=== PATIENT | female | born 1950 | race Caucasian/White ===

== ENCOUNTER 2017-10-12 07:02 | Day surgery (SDC) | payer MEDICARE, BC ==
[2017-10-12] MEDS ORDERED: Sodium Chloride 0.9% 1,000 ML IV SCH (07:45)
[2017-10-12] MEDS ORDERED: Albuterol/Ipratropium 3.0-0.5 MG/3 ML Neb Soln NEB ONE (08:00)
[2017-10-12] MEDS ORDERED: fentaNYL 100 MCG/2 ML SDV ONE (08:09)
[2017-10-12] MEDS ORDERED: Propofol 200 MG/20 ML SDV ONE (08:09)
[2017-10-12] MEDS ORDERED: Midazolam 1 MG/ML 2 ML SDV ONE (08:09)
--- NOTE | 2017-10-12 11:32 | OR ---
DATE OF PROCEDURE: 10/12/2017 PROCEDURE: Colonoscopy. FINDINGS: 1. Diverticulosis, mild to moderate, but limited to sigmoid colon only. 2. Sigmoid colon polyp, approximately 5 mm, completely removed using cold biopsy forceps. COMPLICATIONS: None. METAL CASTING TRADES WORKER: None. PREOPERATIVE DIAGNOSIS: Screening colonoscopy. POSTOPERATIVE DIAGNOSIS: Screening colonoscopy. RISKS: Risks, benefits, alternatives, and limitations including, but not limited to infection, bleeding, and perforation were explained to the patient, who wished to proceed. PROCEDURE IN DETAIL: The patient was placed in left lateral decubitus position. Digital rectal exam was performed without abnormality. The scope was introduced and advanced atraumatically to the ileocecal valve. A photo was taken. The scope was brought back through the ascending, transverse, descending colon, and retroflexed. The aforementioned polyp was identified and completely removed. The diverticulosis would be described as mild to moderate and limited to sigmoid colon only. No abnormalities on retroflexion. The patient tolerated the procedure well. Victor Manuel Castillo MD /[id number]
== END 2017-10-12 09:39 | disposition home or self-care (01) ==
LOC: JP.SDS 07:02
PROVIDERS: ATTEND Surgery
DX: Z12.11 Encounter for screening for malignant neoplasm of colon (principal); K63.5 Polyp of colon; K57.30 Diverticulosis of large intestine without perforation or abscess without bleeding; I10 Essential (primary) hypertension; J44.9 Chronic obstructive pulmonary disease, unspecified; E03.9 Hypothyroidism, unspecified; F17.210 Nicotine dependence, cigarettes, uncomplicated; Z88.8 Allergy status to other drugs, medicaments and biological substances; Z86.010 Personal history of colon polyps
CPT/HCPCS: 45380; 88305; J2250; J2704; J3010; J7040; J7620; J7030

== ENCOUNTER 2019-07-10 12:20 | Emergency (ER) | payer MEDICARE, BC ==
--- NOTE | 2019-07-10 13:21 | EDM.PDOC ---
ED HPI GENERAL MEDICAL PROBLEM - General Chief Complaint: General Stated Complaint: VOMITING WEAKNESS NO FOOD Time Seen by Provider: 07/10/19 13:15 Source of Information: Reports: Patient, Family, RN Notes Reviewed History Limitations: Reports: No Limitations - History of Present Illness INITIAL COMMENTS - FREE TEXT/NARRATIVE: 69-year-old female presents emergency department today complaint of nausea vomiting, she's been ill for 3 days is not having loose stools she is the only one that is sick in the household no fevers no shortness of breath or chest pain , does have crampy abdominal pain Abdomen Pain Score (Numeric/FACES): 4 - Related Data Allergies Allergy/AdvReac Type Severity Reaction Status Date / Time lisinopril Allergy Swelling Verified 10/12/17 07:28 codeine AdvReac Vomiting Verified 10/12/17 07:28 Home Meds: Home Meds Albuterol Sulfate [Proair Hfa] 2 puff IH Q4H PRN 08/03/15 [History] Aspirin [Children's Aspirin] 81 mg PO DAILY 08/03/15 [History] Irbesartan [Avapro] 150 mg PO DAILY 08/03/15 [History] Metoprolol Succinate [Toprol XL] 150 mg PO BEDTIME 08/03/15 [History] Ondansetron [Zofran] 4 mg PO Q8H PRN 08/03/15 [History] amLODIPine Besylate [Amlodipine Besylate] 5 mg PO DAILY 08/03/15 [History] Omeprazole 20 mg PO DAILY 10/10/17 [History] Triamcinolone Acetonide [Kenalog 0.1% Crm] 1 dose TOP BID 10/10/17 [History] Past Medical History HEENT History: Reports: Impaired Vision Cardiovascular History: Reports: Hypertension Respiratory History: Reports: Asthma Gastrointestinal History: Reports: Diverticulosis, Other (See Below) 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: Musculoskeletal History: Reports: Arthritis - Infectious Disease History Infectious Disease History: Reports: Chicken Pox - Past Surgical History Cardiovascular Surgical History: Reports: None Respiratory Surgical History: Reports: None GI Surgical History: Reports: Appendectomy, Colonoscopy Musculoskeletal Surgical History: Reports: None Social & Family History - Family History Family Medical History: Noncontributory - Tobacco Use Smoking Status *Q: Current Every Day Smoker Years of Tobacco use: 50 Packs/Tins Daily: 0.5 - Caffeine Use Caffeine Use: Reports: Soda ED ROS GENERAL - Review of Systems Review Of Systems: See Below Constitutional: Reports: Weakness, Decreased Appetite. Denies: Fever, Chills HEENT: Reports: No Symptoms Respiratory: Reports: No Symptoms Cardiovascular: Reports: No Symptoms GI/Abdominal: Reports: Abdominal Pain (Crampy), Nausea, Vomiting. Denies: Constipation, Diarrhea : Reports: No Symptoms ED EXAM, GENERAL - Physical Exam Exam: See Below Exam Limited By: No Limitations General Appearance: Alert, WD/WN, No Apparent Distress Respiratory/Chest: No Respiratory Distress, Lungs Clear, Normal Breath Sounds, No Accessory Muscle Use, Chest Non-Tender Cardiovascular: Regular Rate, Rhythm, No Murmur GI/Abdominal: Soft, Non-Tender Course - Vital Signs Last Recorded V/S: Last Vital Signs Temp 99.2 F 07/10/19 12:35 Pulse 108 H 07/10/19 12:35 Resp 24 H 07/10/19 12:35 BP 188/91 H 07/10/19 12:35 Pulse Ox 96 07/10/19 12:35 - Orders/Labs/Meds Orders: Active Orders 24 hr Category Date Time Status Peripheral IV Care [RC] . DIRECTED Care 07/10/19 13:19 Active Lactated Ringers [Ringers, Lactated] 1,000 ml Med 07/10/19 13:30 Active IV ASDIRECTED Sodium Chloride 0.9% [Saline Flush] Med 07/10/19 13:18 Active 10 ml FLUSH ASDIRECTED PRN Peripheral IV Insertion Adult [OM.PC] Urgent Oth 07/10/19 13:18 Ordered Medication Orders Lactated Ringer's (Ringers, Lactated) 1,000 mls @ 999 mls/hr IV ASDIRECTED SIRISHA Last Admin: 07/10/19 13:35 Dose: 999 mls/hr Sodium Chloride (Saline Flush) 10 ml FLUSH ASDIRECTED PRN PRN Reason: Keep Vein Open Last Admin: 07/10/19 13:37 Dose: 10 ml Labs: Laboratory Tests 07/10/19 07/10/19 07/10/19 Range/Units 13:32 13:32 13:32 WBC 11.3 H (4.5-11.0) K/uL RBC 4.07 (3.30-5.50) M/uL Hgb 13.7 (12.0-15.0) g/dL Hct 38.0 (36.0-48.0) % MCV 93 (80-98) fL MCH 34 H (27-31) pg MCHC 36 (32-36) % Plt Count 310 (150-400) K/uL Neut % (Auto) 81 H (36-66) % Lymph % (Auto) 8 L (24-44) % Sherman % (Auto) 12 H (2-6) % Eos % (Auto) 0 L (2-4) % Baso % (Auto) 0 (0-1) % Sodium 121 L (140-148) mmol/L Potassium 3.7 (3.6-5.2) mmol/L Chloride 84 L (100-108) mmol/L Carbon Dioxide 26 (21-32) mmol/L Anion Gap 14.7 H (5.0-14.0) mmol/L BUN 6 L (7-18) mg/dL Creatinine 0.7 (0.6-1.0) mg/dL Est Cr Clr Drug Dosing 63.63 mL/min Estimated GFR (MDRD) > 60 (>60) Glucose 136 H (74-106) mg/dL Lactic Acid 2.6 H (0.4-2.0) mmol/L Calcium 8.9 (8.5-10.1) mg/dL Magnesium 0.8 L (1.8-2.4) mg/dL Total Bilirubin 0.6 (0.2-1.0) mg/dL AST 26 (15-37) U/L ALT 15 (12-78) U/L Alkaline Phosphatase 65 (46-116) U/L Total Protein 7.8 (6.4-8.2) g/dL Albumin 3.5 (3.4-5.0) g/dL Globulin 4.3 H (2.3-3.5) g/dL Albumin/Globulin Ratio 0.8 L (1.2-2.2) Lipase 89 (73-393) U/L Urine Color (YELLOW) Urine Appearance (CLEAR) Urine pH (5.0-8.0) Ur Specific [place] (1.008-1.030) Urine Protein (NEGATIVE) mg/dL Urine Glucose (UA) (NEGATIVE) mg/dL Urine Ketones (NEGATIVE) mg/dL Urine Occult Blood (NEGATIVE) Urine Nitrite (NEGATIVE) Urine Bilirubin (NEGATIVE) Urine Urobilinogen (0.2-1.0) EU/dL Ur Leukocyte Esterase (NEGATIVE) Urine RBC (0-5) Urine WBC (0-5) Ur Epithelial Cells Amorphous Sediment Urine Bacteria Urine Mucus 07/10/19 Range/Units 14:32 WBC (4.5-11.0) K/uL RBC (3.30-5.50) M/uL Hgb (12.0-15.0) g/dL Hct (36.0-48.0) % MCV (80-98) fL MCH (27-31) pg MCHC (32-36) % Plt Count (150-400) K/uL Neut % (Auto) (36-66) % Lymph % (Auto) (24-44) % Sherman % (Auto) (2-6) % Eos % (Auto) (2-4) % Baso % (Auto) (0-1) % Sodium (140-148) mmol/L Potassium (3.6-5.2) mmol/L Chloride (100-108) mmol/L Carbon Dioxide (21-32) mmol/L Anion Gap (5.0-14.0) mmol/L BUN (7-18) mg/dL Creatinine (0.6-1.0) mg/dL Est Cr Clr Drug Dosing mL/min Estimated GFR (MDRD) (>60) Glucose (74-106) mg/dL Lactic Acid (0.4-2.0) mmol/L Calcium (8.5-10.1) mg/dL Magnesium (1.8-2.4) mg/dL Total Bilirubin (0.2-1.0) mg/dL AST (15-37) U/L ALT (12-78) U/L Alkaline Phosphatase (46-116) U/L Total Protein (6.4-8.2) g/dL Albumin (3.4-5.0) g/dL Globulin (2.3-3.5) g/dL Albumin/Globulin Ratio (1.2-2.2) Lipase (73-393) U/L Urine Color Yellow (YELLOW) Urine Appearance Clear (CLEAR) Urine pH 8.5 H (5.0-8.0) Ur Specific [place] 1.020 (1.008-1.030) Urine Protein 100 H (NEGATIVE) mg/dL Urine Glucose (UA) Negative (NEGATIVE) mg/dL Urine Ketones Negative (NEGATIVE) mg/dL Urine Occult Blood Negative (NEGATIVE) Urine Nitrite Negative (NEGATIVE) Urine Bilirubin Negative (NEGATIVE) Urine Urobilinogen 2.0 H (0.2-1.0) EU/dL Ur Leukocyte Esterase Negative (NEGATIVE) Urine RBC 0-5 (0-5) Urine WBC 0-5 (0-5) Ur Epithelial Cells Rare Amorphous Sediment Not seen Urine Bacteria Moderate Urine Mucus Not seen Meds: Medications Generic Name Dose Route Start Last Admin Trade Name Freq PRN Reason Stop Dose Admin Lactated Ringer's 1,000 mls @ 999 mls/hr 07/10/19 13:30 07/10/19 13:35 Ringers, Lactated IV 999 mls/hr ASDIRECTED SIRISHA Administration Sodium Chloride 10 ml 07/10/19 13:18 07/10/19 13:37 Saline Flush FLUSH 10 ml ASDIRECTED PRN Administration Keep Vein Open Discontinued Medications Generic Name Dose Route Start Last Admin Trade Name Freq PRN Reason Stop Dose Admin Ondansetron HCl 4 mg 07/10/19 13:19 07/10/19 13:36 Zofran IVPUSH 07/10/19 13:20 4 mg ONETIME ONE Administration Departure - Departure Time of Disposition: 15:10 Disposition: Home, Self-Care 01 Condition: Fair Clinical Impression: Gastroenteritis - Discharge Information Referrals: Coral Dietz PA [Primary Care Provider] - Forms: ED Department Discharge Additional Instructions: Continue to push fluids, use Zofran as needed for nausea and vomiting symptoms, Please followup with your primary care provider in 3-5 days if not better, please call return to the emergency department with worsening of symptoms. - My Orders Last 24 Hours: My Active Orders 07/10/19 13:18 Sodium Chloride 0.9% [Saline Flush] 10 ml FLUSH ASDIRECTED PRN Peripheral IV Insertion Adult [OM.PC] Urgent 07/10/19 13:19 Peripheral IV Care [RC] . DIRECTED 07/10/19 13:30 Lactated Ringers [Ringers, Lactated] 1,000 ml IV ASDIRECTED - Assessment/Plan Last 24 Hours: My Active Orders 07/10/19 13:18 Sodium Chloride 0.9% [Saline Flush] 10 ml FLUSH ASDIRECTED PRN Peripheral IV Insertion Adult [OM.PC] Urgent 07/10/19 13:19 Peripheral IV Care [RC] . DIRECTED 07/10/19 13:30 Lactated Ringers [Ringers, Lactated] 1,000 ml IV ASDIRECTED Plan: Assessment Acuity = acute Site and laterality = gastroenteritis Etiology = probable viral cause Manifestations = nausea and vomiting Location of injury = Home Lab values = sodium low at 121 consistent hyponatremia, lactic acid elevated 2.6 consistent lactic acidosis urinalysis unremarkable Plan She had good improvement combination Zofran and 1 L fluids plan is discharge home Zofran ODT 1 tablet by mouth 3 times a day when necessary total #10 faxed at [facility] her follow-up primary care in 3-5 days if no improvement continue to push fluids This note was dictated using [employer] voice recognition software please call with any questions on syntax or grammar.
[2019-07-10] MEDS: Lactated Ringers 1,000 ML IV SCH (13:35)
[2019-07-10] MEDS: Ondansetron 4 MG/2 ML SDV IVPUSH ONE (13:36)
[2019-07-10] MEDS: Sodium Chloride 0.9% 10 ML Syringe FLUSH PRN (13:37)
== END 2019-07-10 15:25 | disposition home or self-care (01) ==
LOC: JP.ED 12:20
DX: K52.9 Noninfective gastroenteritis and colitis, unspecified (principal); I10 Essential (primary) hypertension; J45.909 Unspecified asthma, uncomplicated; F17.210 Nicotine dependence, cigarettes, uncomplicated; Z88.8 Allergy status to other drugs, medicaments and biological substances; Z88.5 Allergy status to narcotic agent; Z79.899 Other long term (current) drug therapy; Z79.82 Long term (current) use of aspirin
CPT/HCPCS: 36415; 80053; 81001; 83605; 83690; 83735; 85025; 96361; 96374; 99284; J2405; J7120

== ENCOUNTER 2024-07-28 08:57 | Inpatient (IN) | payer MEDICARE, BC ==
[2024-07-28] MEDS: methylPREDNISolone Sodium Succinate 125 MG/2 ML SDV IVPUSH ONE ×2 (09:25→17:53)
[2024-07-28] MEDS: Albuterol/Ipratropium 3.0-0.5 MG/3 ML Neb Soln NEB ONE (09:25)
[2024-07-28 09:35] LABS: BASOPHILS ABSOLUTE AUTO 0.07 K/uL (0.00-0.10); BASOPHILS PERCENT AUTO 0.4 % (0.1-1.3); EOSINOPHILS ABSOLUTE AUTO 0.03 K/uL (0.00-0.40); EOSINOPHILS PERCENT AUTO 0.2 % (0.0-5.4); HEMATOCRIT 38.4 % (34.3-46.0); HEMOGLOBIN 14.2 g/dL (11.2-15.5); IMMATURE GRAN ABSOLUTE AUTO 0.13 K/uL (0.00-0.23); IMMATURE GRAN PERCENT AUTO 0.8 % (0.0-0.7); LYMPHOCYTES ABSOLUTE AUTO 0.57 K/uL (0.8-3.3); LYMPHOCYTES PERCENT AUTO 3.5 % (11.4-47.7); MEAN CORPUSCULAR VOLUME 91.9 fL (81.4-99.0); MONOCYTES ABSOLUTE AUTO 1.38 K/uL (0.20-0.90); MONOCYTES PERCENT AUTO 8.5 % (3.3-12.6); NEUTROPHILS PERCENT AUTO 86.6 % (40.0-78.1); PLATELET COUNT,PLT 266 K/uL (130-375); RED BLOOD CELL COUNT 4.18 M/uL (3.77-5.24); WHITE BLOOD CELL COUNT,WBC 16.2 K/uL (3.2-11.0)
[2024-07-28 10:04] LABS: A/G RATIO 0.5 (1.2-2.2); ALANINE AMINOTRANSFERASE,ALT 19 U/L (12-78); ALBUMIN 2.6 g/dL (3.4-5.0); ALKALINE PHOSPHATASE 99 U/L (46-116); ASPARTATE AMNIOTRANSFERASE,AST 30 U/L (15-37); BILIRUBIN TOTAL 0.8 mg/dL (0.2-1.0); BLOOD UREA NITROGEN,BUN 21 mg/dL (7-18); CARBON DIOXIDE,CO2 34 mmol/L (21-32); CHLORIDE,CL 74 mmol/L (100-108); CREATININE 1.2 mg/dL (0.6-1.0); EST CRCL DRUG DOSING (CG) 34.54 mL/min; ESTIMATED GFR 48 mL/min (>60); GLUCOSE RANDOM 185 mg/dL (74-106); POTASSIUM,K 3.4 mmol/L (3.6-5.2); PROTEIN TOTAL,TP 7.4 g/dL (6.4-8.2)
[2024-07-28 10:12] LABS: CORONAVIRUS COVID-19 NAA NEGATIVE (NEGATIVE); INFLUENZA A NAA NEGATIVE (NEGATIVE); INFLUENZA B NAA NEGATIVE (NEGATIVE); RESPIRATORY SYNCYTIAL VIR NAA NEGATIVE (NEGATIVE)
[2024-07-28 10:13] LABS: ANION GAP 12.4 mmol/L (5.0-14.0); SODIUM,NA 117 mmol/L (140-148)
[2024-07-28] MEDS: cefTRIAXone 1 GM in Sodium Chloride 0.9% 50 ML IV ONE (10:30)
[2024-07-28] MEDS: Sodium Chloride 0.9% 1,000 ML IV ONE (10:31)
[2024-07-28] MEDS: Albuterol 0.083% 2.5 MG/3 ML Neb Soln NEB ONE (10:36)
[2024-07-28] MEDS ORDERED: Benzonatate 100 MG Cap PO PRN (13:12)
[2024-07-28] MEDS ORDERED: Magnesium Hydroxide 400 MG/5 ML Susp 30 ML Cup PO PRN (13:12)
[2024-07-28] MEDS ORDERED: guaiFENesin/Dextromethorphan 100-10 MG/5 ML Soln 10 ML Cup PO PRN (13:12)
[2024-07-28] MEDS ORDERED: Nicotine 21 MG/24 Hr Patch TRDERM PRN (13:12)
[2024-07-28] MEDS ORDERED: Ondansetron 4 MG/2 ML SDV IV PRN (13:12)
[2024-07-28] MEDS ORDERED: Sennosides/Docusate Sodium 50-8.6 MG Tab PO PRN (13:12)
[2024-07-28] MEDS ORDERED: Calcium Carbonate 500 MG Tab.Chew PO PRN (13:12)
[2024-07-28] MEDS: Albuterol/Ipratropium 3.0-0.5 MG/3 ML Neb Soln NEB SCH (14:23)
[2024-07-28] MEDS: Sodium Chloride 0.9% 1,000 ML IV SCH (14:36)
[2024-07-28] MEDS: Doxycycline 100 MG Cap PO SCH (14:36)
[2024-07-28] MEDS: Ondansetron 4 MG Tab.DIS PO PRN (15:42)
[2024-07-28] MEDS: Lactobacillus Rhamnosus GG (Probiotic) Cap PO SCH (20:14)
[2024-07-28] MEDS: Melatonin 3 MG Tab PO PRN (22:35)
[2024-07-29 05:46] LABS: HEMATOCRIT 35.5 % (34.3-46.0); MEAN CORPUSCULAR HEMOGLOBIN 34.2 pg (31.6-35.5); MEAN CORPUSCULAR HGB CONC 36.6 g/dL (31.6-35.5); MEAN CORPUSCULAR VOLUME 93.4 fL (81.4-99.0); RED BLOOD CELL COUNT 3.8 M/uL (3.77-5.24); WHITE BLOOD CELL COUNT,WBC 9.8 K/uL (3.2-11.0)
[2024-07-29 06:01] LABS: CALCIUM 8.4 mg/dL (8.5-10.1); CREATININE 1.2 mg/dL (0.6-1.0); EST CRCL DRUG DOSING (CG) 34.54 mL/min; POTASSIUM,K 3.6 mmol/L (3.6-5.2)
[2024-07-29 06:03] LABS: ANION GAP 7.6 mmol/L (5.0-14.0)
[2024-07-29] MEDS: Pantoprazole 40 MG Tab.CR PO SCH (07:32)
[2024-07-29] MEDS: predniSONE 20 MG Tab PO SCH (07:32)
[2024-07-29] MEDS: Metoprolol Succinate 50 MG Tab.ER PO SCH (08:54)
[2024-07-29] MEDS: Aspirin 81 MG Tab.EC PO SCH (08:54)
[2024-07-29] MEDS: Sodium Chloride 0.9% 10 ML Syringe IV PRN (10:22)
[2024-07-29] MEDS: Potassium Chloride 20 MEQ Tab.ER PO ONE (10:26)
[2024-07-29] MEDS: WATER FOR INJECTION IV SCH (10:28)
[2024-07-29] MEDS: CEFTRIAXONE IV SCH (10:28)
[2024-07-29] MEDS: STERILE IV SCH (10:28)
[2024-07-29] MEDS: Iopamidol 612 MG/ML 100 ML Bottle IV ONE (14:29)
[2024-07-29] MEDS: Sodium Chloride 0.9% 10 ML Syringe FLUSH ONE (14:29)
[2024-07-29] MEDS: Sodium Chloride 0.9% 100 ML IV SCH (14:29)
[2024-07-29] MEDS: Benzocaine/Cetylpyridinium/Menthol Lozenge MUCMEM PRN (15:19)
[2024-07-29] MEDS: Sodium Chloride 0.9% 1,000 ML IV SCH (17:36)
[2024-07-29] MEDS: Acetaminophen 325 MG Tab PO PRN (20:56)
[2024-07-30 06:23] LABS: CALCIUM 8.5 mg/dL (8.5-10.1); CREATININE 1.2 mg/dL (0.6-1.0); EST CRCL DRUG DOSING (CG) 34.54 mL/min; POTASSIUM,K 4.9 mmol/L (3.6-5.2)
[2024-07-30 06:24] LABS: ANION GAP 8.9 mmol/L (5.0-14.0)
[2024-07-30] MEDS: FLU (Fluad Triv) TS24-25 (65UP)/MF59C/PF 45 MCG/0.5 ML Syringe IM ONE (10:02)
[2024-07-30] MEDS ORDERED: LORazepam 2 MG/ML SDV IV SCH (15:45)
[2024-07-30] MEDS ORDERED: LORazepam 1 MG Tab PO SCH (15:45)
[2024-07-31] MEDS: Albuterol 0.083% 2.5 MG/3 ML Neb Soln NEB PRN (03:12)
[2024-07-31 05:27] LABS: HEMATOCRIT 35.7 % (34.3-46.0); HEMOGLOBIN 12.8 g/dL (11.2-15.5); MEAN CORPUSCULAR HGB CONC 35.9 g/dL (31.6-35.5); MEAN CORPUSCULAR VOLUME 94.9 fL (81.4-99.0); RED BLOOD CELL COUNT 3.76 M/uL (3.77-5.24); WHITE BLOOD CELL COUNT,WBC 15.4 K/uL (3.2-11.0)
[2024-07-31 05:49] LABS: A/G RATIO 0.6 (1.2-2.2); ALANINE AMINOTRANSFERASE,ALT 31 U/L (12-78); ALBUMIN 2.4 g/dL (3.4-5.0); ALKALINE PHOSPHATASE 62 U/L (46-116); ASPARTATE AMNIOTRANSFERASE,AST 40 U/L (15-37); BILIRUBIN TOTAL 0.2 mg/dL (0.2-1.0); BLOOD UREA NITROGEN,BUN 20 mg/dL (7-18); CALCIUM 8.5 mg/dL (8.5-10.1); CARBON DIOXIDE,CO2 34 mmol/L (21-32); CHLORIDE,CL 89 mmol/L (100-108); CREATININE 1.1 mg/dL (0.6-1.0); EST CRCL DRUG DOSING (CG) 37.68 mL/min; ESTIMATED GFR 53 mL/min (>60); GLUCOSE RANDOM 117 mg/dL (74-106); POTASSIUM,K 4.8 mmol/L (3.6-5.2); PROTEIN TOTAL,TP 6.3 g/dL (6.4-8.2); SODIUM,NA 126 mmol/L (140-148)
[2024-07-31 06:04] LABS: ANION GAP 7.8 mmol/L (5.0-14.0)
[2024-07-31 07:17] VITALS: PULSE 88
[2024-07-31] MEDS: Folic Acid 1 MG Tab PO SCH (08:07)
[2024-07-31] MEDS: Thiamine 100 MG Tab PO SCH (08:07)
[2024-07-31 11:22] VITALS: BP 195/87
[2024-07-31] MEDS ORDERED: Cefdinir 300 MG Cap PO SCH (21:00)
== END 2024-07-31 11:25 | disposition home health service (06) | DRG 193 ==
LOC: JP.ED 08:57 → JP.MS 13:00
PROVIDERS: ADMIT Internal Medicine; ATTEND Hospitalist
DX: J18.9 Pneumonia, unspecified organism (principal); J96.01 Acute respiratory failure with hypoxia; E87.1 Hypo-osmolality and hyponatremia; J44.0 Chronic obstructive pulmonary disease with (acute) lower respiratory infection; J44.1 Chronic obstructive pulmonary disease with (acute) exacerbation; K50.819 Crohn's disease of both small and large intestine with unspecified complications; F17.210 Nicotine dependence, cigarettes, uncomplicated; Z66 Do not resuscitate; I10 Essential (primary) hypertension; M19.90 Unspecified osteoarthritis, unspecified site; F41.9 Anxiety disorder, unspecified; H54.7 Unspecified visual loss; F32.A Depression, unspecified; E87.6 Hypokalemia; Z88.5 Allergy status to narcotic agent; Z88.8 Allergy status to other drugs, medicaments and biological substances; Z79.82 Long term (current) use of aspirin; Z79.899 Other long term (current) drug therapy; Z79.51 Long term (current) use of inhaled steroids; Z87.19 Personal history of other diseases of the digestive system; Z90.89 Acquired absence of other organs; Z90.49 Acquired absence of other specified parts of digestive tract; Z98.890 Other specified postprocedural states
CPT/HCPCS: 0241U; 36415; 71045; 71045-26; 71260; 71260-26; 80048; 80053; 83605; 83880; 84295; 85025; 85027; 86140; 87040; 90653; 93005; 93010; 94640; 96361; 96365; 96375; 97110-GP; 97161-GP; 97530-GP; 99285; 99285-25; A9270-GY; G0008; J0696; J2919; J3490; J7030; J7512; J7620; Q0162; Q9967

== ENCOUNTER 2024-08-01 10:37 | Emergency (ER) | payer MEDICARE, BC ==
[2024-08-01] MEDS: Albuterol/Ipratropium 3.0-0.5 MG/3 ML Neb Soln NEB SCH (11:29)
[2024-08-01] MEDS: methylPREDNISolone Sodium Succinate 125 MG/2 ML SDV IVPUSH ONE (11:29)
[2024-08-01 11:45] LABS: BASOPHILS PERCENT AUTO 0.1 % (0.1-1.3); EOSINOPHILS PERCENT AUTO 0.1 % (0.0-5.4); HEMATOCRIT 38.6 % (34.3-46.0); HEMOGLOBIN 13.5 g/dL (11.2-15.5); IMMATURE GRAN ABSOLUTE AUTO 0.21 K/uL (0.00-0.23); IMMATURE GRAN PERCENT AUTO 1.2 % (0.0-0.7); LYMPHOCYTES ABSOLUTE AUTO 0.61 K/uL (0.8-3.3); LYMPHOCYTES PERCENT AUTO 3.4 % (11.4-47.7); MEAN CORPUSCULAR VOLUME 97.2 fL (81.4-99.0); MONOCYTES PERCENT AUTO 9.9 % (3.3-12.6); NEUTROPHILS ABSOLUTE AUTO 15.48 K/uL (1.0-7.6); NEUTROPHILS PERCENT AUTO 85.3 % (40.0-78.1); PLATELET COUNT,PLT 323 K/uL (130-375); RED BLOOD CELL COUNT 3.97 M/uL (3.77-5.24); WHITE BLOOD CELL COUNT,WBC 18.1 K/uL (3.2-11.0)
[2024-08-01 11:46] LABS: BASOPHILS ABSOLUTE AUTO 0.02 K/uL (0.00-0.10); EOSINOPHILS ABSOLUTE AUTO 0.02 K/uL (0.00-0.40)
[2024-08-01 12:06] LABS: A/G RATIO 0.7 (1.2-2.2); ALANINE AMINOTRANSFERASE,ALT 48 U/L (12-78); ALBUMIN 2.7 g/dL (3.4-5.0); ALKALINE PHOSPHATASE 70 U/L (46-116); ANION GAP 7.1 mmol/L (5.0-14.0); ASPARTATE AMNIOTRANSFERASE,AST 60 U/L (15-37); BILIRUBIN TOTAL 0.4 mg/dL (0.2-1.0); BLOOD UREA NITROGEN,BUN 21 mg/dL (7-18); CARBON DIOXIDE,CO2 38 mmol/L (21-32); CHLORIDE,CL 90 mmol/L (100-108); CREATININE 1.1 mg/dL (0.6-1.0); EST CRCL DRUG DOSING (CG) 37.68 mL/min; ESTIMATED GFR 53 mL/min (>60); GLUCOSE RANDOM 99 mg/dL (74-106); POTASSIUM,K 5.1 mmol/L (3.6-5.2); PROTEIN TOTAL,TP 6.6 g/dL (6.4-8.2); SODIUM,NA 130 mmol/L (140-148)
== END 2024-08-01 15:27 | disposition home or self-care (01) ==
LOC: JP.ED 10:37
DX: J44.89 Other specified chronic obstructive pulmonary disease (principal); I10 Essential (primary) hypertension; M19.90 Unspecified osteoarthritis, unspecified site; F17.210 Nicotine dependence, cigarettes, uncomplicated; Z90.49 Acquired absence of other specified parts of digestive tract; Z88.5 Allergy status to narcotic agent; Z88.8 Allergy status to other drugs, medicaments and biological substances; Z79.51 Long term (current) use of inhaled steroids; Z79.82 Long term (current) use of aspirin; Z79.52 Long term (current) use of systemic steroids; Z79.899 Other long term (current) drug therapy
CPT/HCPCS: 36415; 71046; 80053; 85025; 94640; 96365; 96375; 99283; 99285; J2919; J3490; J7620

== ENCOUNTER 2024-08-20 20:56 | Inpatient (IN) | payer MEDICARE, BC ==
[2024-08-20 21:41] LABS: BASE EXCESS ARTERIAL 9.9 mm/L; BICARBONATE,ARTERIAL 37.6 mmol/L (22.0-26.0); CARBOXYHEMOGLOBIN 2.1 % (0.0-1.6); O2 SATURATION ARTERIAL 93.6 % (95.0-98.0); OXYHEMOGLOBIN 90.7 %; PCO2 ARTERIAL 67.6 mmHg (35.0-42.0); PO2 ARTERIAL 74.3 mmHg (75.0-100.0); TOTAL HEMOGLOBIN 13.3 g/dL (12.0-16.0)
[2024-08-20 21:44] LABS: BASOPHILS PERCENT AUTO 0.1 % (0.1-1.3); EOSINOPHILS PERCENT AUTO 0.1 % (0.0-5.4); HEMOGLOBIN 13.1 g/dL (11.2-15.5); IMMATURE GRAN PERCENT AUTO 0.6 % (0.0-0.7); LYMPHOCYTES ABSOLUTE AUTO 0.21 K/uL (0.8-3.3); LYMPHOCYTES PERCENT AUTO 1.2 % (11.4-47.7); MEAN CORPUSCULAR HEMOGLOBIN 33.4 pg (31.6-35.5); MEAN CORPUSCULAR HGB CONC 35.4 g/dL (31.6-35.5); MEAN CORPUSCULAR VOLUME 94.4 fL (81.4-99.0); MONOCYTES ABSOLUTE AUTO 0.34 K/uL (0.20-0.90); MONOCYTES PERCENT AUTO 1.9 % (3.3-12.6); NEUTROPHILS ABSOLUTE AUTO 17.23 K/uL (1.0-7.6); NEUTROPHILS PERCENT AUTO 96.1 % (40.0-78.1); PLATELET COUNT,PLT 218 K/uL (130-375); RED BLOOD CELL COUNT 3.92 M/uL (3.77-5.24); WHITE BLOOD CELL COUNT,WBC 17.9 K/uL (3.2-11.0)
[2024-08-20 21:45] LABS: BASOPHILS ABSOLUTE AUTO 0.01 K/uL (0.00-0.10); EOSINOPHILS ABSOLUTE AUTO 0.01 K/uL (0.00-0.40)
[2024-08-20 22:02] LABS: A/G RATIO 0.8 (1.2-2.2); ALANINE AMINOTRANSFERASE,ALT 27 U/L (12-78); ALBUMIN 2.7 g/dL (3.4-5.0); ALKALINE PHOSPHATASE 63 U/L (46-116); ASPARTATE AMNIOTRANSFERASE,AST 19 U/L (15-37); BILIRUBIN TOTAL 1.1 mg/dL (0.2-1.0); BLOOD UREA NITROGEN,BUN 42 mg/dL (7-18); CALCIUM 9.6 mg/dL (8.5-10.1); CARBON DIOXIDE,CO2 39 mmol/L (21-32); CHLORIDE,CL 83 mmol/L (100-108); CREATININE 0.8 mg/dL (0.6-1.0); EST CRCL DRUG DOSING (CG) 49.53 mL/min; ESTIMATED GFR 78 mL/min (>60); GLUCOSE RANDOM 226 mg/dL (74-106); MAGNESIUM 1.7 mg/dL (1.8-2.4); POTASSIUM,K 4.4 mmol/L (3.6-5.2); SODIUM,NA 121 mmol/L (140-148)
[2024-08-20 22:04] LABS: ANION GAP 3.4 mmol/L (5.0-14.0)
[2024-08-20] MEDS: Metoprolol Tartrate 50 MG Tab PO ONE (22:15)
[2024-08-20 22:32] LABS: APPEARANCE,URINE CLEAR (CLEAR); BILIRUBIN,URINE NEGATIVE (NEGATIVE); COLOR,URINE YELLOW (YELLOW); GLUCOSE,URINE NEGATIVE (NEGATIVE); KETONES,URINE NEGATIVE (NEGATIVE); LEUKOCYTE ESTERASE,URINE NEGATIVE (NEGATIVE); NITRITE,URINE NEGATIVE (NEGATIVE); OCCULT BLOOD,URINE NEGATIVE (NEGATIVE); PROTEIN,URINE >=300 mg/dL (NEGATIVE); UROBILINOGEN,URINE 0.2 EU/dL (0.2-1.0)
[2024-08-20 22:40] LABS: AMORPHOUS SEDIMENT,URINE NOT SEEN; BACTERIA,URINE FEW; EPITHELIAL CELLS,URINE FEW; MUCUS,URINE NOT SEEN; RBC,URINE 0-5 (0-5); WBC,URINE 0-5 (0-5)
[2024-08-20] MEDS: Magnesium Sulfate/Water Premix 2 GM in Premix Bag 1 BAG IV ONE (23:07)
[2024-08-21] MEDS: Sodium Chloride 0.9% 1,000 ML IV SCH ×2 (00:05→07:33)
[2024-08-21] MEDS ORDERED: Acetaminophen 325 MG Tab PO PRN (01:45)
[2024-08-21 06:04] LABS: HEMATOCRIT 34.8 % (34.3-46.0); HEMOGLOBIN 12.7 g/dL (11.2-15.5); MEAN CORPUSCULAR HEMOGLOBIN 33.8 pg (31.6-35.5); MEAN CORPUSCULAR HGB CONC 36.5 g/dL (31.6-35.5); MEAN CORPUSCULAR VOLUME 92.6 fL (81.4-99.0); RED BLOOD CELL COUNT 3.76 M/uL (3.77-5.24); WHITE BLOOD CELL COUNT,WBC 15.8 K/uL (3.2-11.0)
[2024-08-21 06:17] LABS: CALCIUM 8.8 mg/dL (8.5-10.1); CREATININE 0.6 mg/dL (0.6-1.0); EST CRCL DRUG DOSING (CG) 66.05 mL/min; POTASSIUM,K 4.1 mmol/L (3.6-5.2)
[2024-08-21 06:23] LABS: ANION GAP 5.1 mmol/L (5.0-14.0)
[2024-08-21] MEDS: Albuterol/Ipratropium 3.0-0.5 MG/3 ML Neb Soln INH SCH (07:16)
[2024-08-21] MEDS: Pantoprazole 40 MG Tab.CR PO SCH (07:45)
[2024-08-21] MEDS: Aspirin 81 MG Tab.EC PO SCH (08:32)
[2024-08-21] MEDS: DULoxetine 20 MG Cap PO SCH (08:32)
[2024-08-21] MEDS: Dexamethasone 2 MG Tab PO SCH (08:32)
[2024-08-21] MEDS: Metoprolol Succinate 50 MG Tab.ER PO SCH (08:32)
[2024-08-21] MEDS: Losartan 50 MG Tab PO SCH (08:32)
[2024-08-21] MEDS: Nicotine 21 MG/24 Hr Patch TRDERM SCH (08:32)
[2024-08-21] MEDS ORDERED: IRBESARTAN 150 MG PO SCH (09:00)
[2024-08-21] MEDS ORDERED: Non-Formulary Medication 1 Each (Omeprazole [Omeprazole] 20 MG Capsule.Dr) PO SCH (09:00)
[2024-08-21] MEDS: Furosemide 20 MG/2 ML VIAL IVPUSH ONE (11:32)
[2024-08-21 17:56] LABS: T4 FREE 0.6 ng/dL (0.76-1.46)
[2024-08-21] MEDS: Levothyroxine 25 MCG Tab PO ONE (18:20)
[2024-08-21] MEDS: Levothyroxine 50 MCG Tab PO ONE (18:26)
[2024-08-21] MEDS: Sodium Chloride 3% 500 ML IV SCH (18:29)
[2024-08-21] MEDS: Enoxaparin 40 MG/0.4 ML Syringe SUBCUT SCH (20:01)
[2024-08-21] MEDS: Metoprolol Tartrate 50 MG Tab PO ONE (20:42)
[2024-08-21] MEDS: diphenhydrAMINE 50 MG/ML SDV IVPUSH ONE (21:40)
[2024-08-21] MEDS: methylPREDNISolone Sodium Succinate 40 MG/1 ML SDV IVPUSH ONE (21:46)
[2024-08-21] MEDS: LORazepam 0.5 MG Tab PO PRN (23:14)
[2024-08-22] MEDS: Metoprolol Tartrate 50 MG Tab PO ONE (01:10)
[2024-08-22] MEDS: Diltiazem IR 30 MG Tab PO ONE (03:06)
[2024-08-22 05:23] LABS: HEMATOCRIT 32.1 % (34.3-46.0); HEMOGLOBIN 11.7 g/dL (11.2-15.5); MEAN CORPUSCULAR HEMOGLOBIN 33.6 pg (31.6-35.5); MEAN CORPUSCULAR HGB CONC 36.4 g/dL (31.6-35.5); MEAN CORPUSCULAR VOLUME 92.2 fL (81.4-99.0); RED BLOOD CELL COUNT 3.48 M/uL (3.77-5.24); WHITE BLOOD CELL COUNT,WBC 14.7 K/uL (3.2-11.0)
[2024-08-22 05:38] LABS: CALCIUM 8.4 mg/dL (8.5-10.1); CREATININE 0.8 mg/dL (0.6-1.0); EST CRCL DRUG DOSING (CG) 49.53 mL/min; POTASSIUM,K 4.6 mmol/L (3.6-5.2)
[2024-08-22 05:43] LABS: ANION GAP 4.6 mmol/L (5.0-14.0)
[2024-08-22] MEDS: Levothyroxine 50 MCG Tab PO SCH (08:11)
[2024-08-22] MEDS: Metoprolol Succinate 50 MG Tab.ER PO SCH (08:21)
[2024-08-22] MEDS: Insulin Lispro 100 Unit/ML 3 ML KwikPen SUBCUT SCH (12:01)
[2024-08-22] MEDS: Morphine 10 MG/0.5 ML Oral Syringe PO PRN (12:42)
[2024-08-24] MEDS: Furosemide 20 MG Tab PO SCH (08:30)
[2024-08-24] MEDS: Polyethylene Glycol 3350 Powder 17 GM Packet PO PRN (23:02)
[2024-08-25] MEDS: LORazepam ORAL Concentrate 1MG/0.5ML U/D SL PRN (05:37)
[2024-08-26] MEDS: Dexamethasone 2 MG Tab PO SCH (08:06)
[2024-08-26] MEDS: Albuterol 6.7 GM Inhaler INH PRN (11:59)
[2024-08-31] MEDS: Dexamethasone 2 MG Tab PO SCH (08:34)
[2024-08-31] MEDS: Morphine 10 MG/0.5 ML Oral Syringe PO PRN (13:54)
[2024-08-31] MEDS: LORazepam ORAL Concentrate 1MG/0.5ML U/D SL PRN (19:09)
== END 2024-09-03 01:43 | disposition expired | DRG 640 ==
LOC: JP.ED 20:56 → JP.MS 08-21 01:30
PROVIDERS: ADMIT Family Medicine; ATTEND Internal Medicine
PROC: 4A033R1 Measurement of Arterial Saturation, Peripheral, Percutaneous Approach (ICD-10-PCS; principal; 2024-08-20)
DX: E87.1 Hypo-osmolality and hyponatremia (principal); J90 Pleural effusion, not elsewhere classified; G93.41 Metabolic encephalopathy; F10.230 Alcohol dependence with withdrawal, uncomplicated; I48.91 Unspecified atrial fibrillation; Z66 Do not resuscitate; R06.89 Other abnormalities of breathing; J45.909 Unspecified asthma, uncomplicated; Z51.5 Encounter for palliative care; J44.9 Chronic obstructive pulmonary disease, unspecified; M19.90 Unspecified osteoarthritis, unspecified site; F41.9 Anxiety disorder, unspecified; I11.0 Hypertensive heart disease with heart failure; Z87.891 Personal history of nicotine dependence; I50.9 Heart failure, unspecified; E86.0 Dehydration; H54.7 Unspecified visual loss; E83.42 Hypomagnesemia; F17.210 Nicotine dependence, cigarettes, uncomplicated; U09.9 Post COVID-19 condition, unspecified; Z88.5 Allergy status to narcotic agent; Z88.8 Allergy status to other drugs, medicaments and biological substances; Z79.82 Long term (current) use of aspirin; Z79.899 Other long term (current) drug therapy; Z79.51 Long term (current) use of inhaled steroids; Z87.19 Personal history of other diseases of the digestive system; Z87.81 Personal history of (healed) traumatic fracture; Z98.49 Cataract extraction status, unspecified eye; Z90.49 Acquired absence of other specified parts of digestive tract; Z90.89 Acquired absence of other organs
CPT/HCPCS: 36415 ×2; 36600; 71045; 71250; 80053; 81001; 82803; 83605; 83735; 83880; 84443; 85025; 85379; 87040 ×2; 93010; 96361; 96365; 96366; 99285 ×2; A9270; J3475; J7030; 80048; 82140; 82947; 84295; 84439; 85027; 94640; 99232; 99233; 99238; J1200; J1650; J1940; J2919; J7131; J7620; J8540